=== PATIENT | male | born 2000 ===

== ENCOUNTER 2020-11-27 09:05 | Emergency (ER) | payer BC ==
[2020-11-27] MEDS ORDERED: Orphenadrine 60 MG/2 ML Inj IM ONE (09:58)
[2020-11-27] MEDS ORDERED: Ketorolac 60 MG/2 ML SDV IM ONE (09:58)
--- NOTE | 2020-11-27 10:07 | EDM.PDOC ---
ED HPI GENERAL MEDICAL PROBLEM - General Chief Complaint: Back Pain or Injury Stated Complaint: back pain Time Seen by Provider: 11/27/20 09:45 Source of Information: Reports: Patient History Limitations: Reports: No Limitations - History of Present Illness INITIAL COMMENTS - FREE TEXT/NARRATIVE: Jose Rafael is a 20 year old who presents with low back pain and a headache. States awoke yesterday with his back hurting. No recall of any injury, straining. Has headache as well. Mild sinus congestion but no facial pain. No ear pain, sore throat, or cough. Denies feeling fatigue or body aches. No exposure to covid that he is aware of. Has not taken any meds for headache or back pain or used ice/heat. Onset: Gradual Duration: Hour(s):, Constant Location: Reports: Back Quality: Reports: Ache Severity: Mild Improves with: Reports: Rest Worsens with: Reports: Movement Associated Symptoms: Reports: Headaches. Denies: Confusion, Chest Pain, Cough, Fever/Chills, Loss of Appetite, Malaise, Nausea/Vomiting, Shortness of Breath, Weakness Back Pain Score (Numeric/FACES): 4 - Related Data Allergies Allergy/AdvReac Type Severity Reaction Status Date / Time No Known Allergies Allergy Verified 11/27/20 09:10 Home Meds: Home Meds Bictegrav/Emtricit/Tenofov Ala [Biktarvy 50-200-25 mg Tablet] 1 tab PO DAILY 11/27/20 [History] Cyclobenzaprine [Flexeril] 5 mg PO Q8H PRN #21 tab 11/27/20 [Rx] Meloxicam 15 mg PO DAILY #7 tablet 11/27/20 [Rx] Past Medical History Immunologic History: Reports: HIV - Infectious Disease History Infectious Disease History: Reports: HIV-Human Immunodeficiency Virus Social & Family History - Family History Family Medical History: No Pertinent Family History - Tobacco Use Tobacco Use Status *Q: Never Tobacco User Second Hand Smoke Exposure: No - Caffeine Use Caffeine Use: Reports: Coffee, Soda - Recreational Drug Use Recreational Drug Use: No ED ROS GENERAL - Review of Systems Review Of Systems: See Below Constitutional: Denies: Fever, Chills, Malaise, Weakness, Fatigue, Decreased Appetite HEENT: Reports: Rhinitis. Denies: Ear Pain, Sinus Problem, Throat Pain Respiratory: Denies: Shortness of Breath, Cough Cardiovascular: Denies: Chest Pain, Lightheadedness Endocrine: Denies: Fatigue GI/Abdominal: Denies: Abdominal Pain, Constipation, Diarrhea, Nausea, Vomiting : Reports: No Symptoms Musculoskeletal: Reports: Back Pain Skin: Reports: No Symptoms Neurological: Reports: Headache ED EXAM,LOWER BACK PAIN/INJURY - Physical Exam Exam: See Below Exam Limited By: No Limitations General Appearance: Alert, WD/WN, No Apparent Distress Eye Exam: Bilateral Eye: EOMI, PERRL Ears: Normal External Exam, Normal TMs Nose: Normal Inspection, Normal Mucosa, Clear Rhinorrhea Throat/Mouth: Normal Inspection, Normal Oropharynx Head: Normocephalic Neck: Normal Inspection, Supple, Non-Tender Respiratory/Chest: No Respiratory Distress, Lungs Clear, Normal Breath Sounds Cardiovascular: Regular Rate, Rhythm GI/Abdominal: Normal Bowel Sounds, Soft, Non-Tender Back Exam: Normal Inspection, Decreased Range of Motion, Muscle Spasm, Paraspinal Tenderness Extremities: Normal Inspection, No Pedal Edema Neurological: Alert, CN II-XII Intact, Normal Gait Skin Exam: Warm, Dry Course - Vital Signs Last Recorded V/S: Last Vital Signs Temp 100.3 F 11/27/20 09:12 Pulse 81 11/27/20 09:12 Resp 16 11/27/20 09:12 BP 146/92 H 11/27/20 09:12 Pulse Ox 98 11/27/20 09:12 - Orders/Labs/Meds Meds: Medications Discontinued Medications Generic Name Dose Route Start Last Admin Trade Name Freq PRN Reason Stop Dose Admin Ketorolac Tromethamine 60 mg 11/27/20 09:58 Ketorolac 60 Mg/2 Ml Sdv IM 11/27/20 09:59 ONETIME ONE Orphenadrine Citrate 60 mg 11/27/20 09:58 Orphenadrine 60 Mg/2 Ml Inj IM 11/27/20 09:59 ONETIME ONE Departure - Departure Time of Disposition: 10:05 Disposition: Home, Self-Care 01 Condition: Good Clinical Impression: Low back pain - Discharge Information *PRESCRIPTION DRUG MONITORING PROGRAM REVIEWED*: No *COPY OF PRESCRIPTION DRUG MONITORING REPORT IN PATIENT PRAMOD: No Prescriptions: Cyclobenzaprine [Flexeril] 5 mg PO Q8H PRN #21 tab PRN Reason: Muscle Spasm - Painful Meloxicam 15 mg PO DAILY #7 tablet Instructions: Acute Back Pain, Adult Referrals: PCP,None [Primary Care Provider] - Additional Instructions: 1. Rest 2. Ice or heat to low back for symptom relief 3. Meloxicam 15 daily for 7 days 4. Flexeril 10 mg every 8 hours as needed for muscle spasms 5. If pain persists, may need to consider seeing physical therapy 6. Call clinic with any concerns Sepsis Event Note (ED) - Evaluation Sepsis Screening Result: No Definite Risk - Focused Exam Vital Signs: Vital Signs Temp Pulse Resp BP Pulse Ox 11/27/20 09:12 100.3 F 81 16 146/92 H 98
== END 2020-11-27 10:10 | disposition home or self-care (01) ==
LOC: CC.ED 09:05
DX: M54.5 Low back pain (principal); B20 Human immunodeficiency virus [HIV] disease; Z79.899 Other long term (current) drug therapy
CPT/HCPCS: 96372; 99283; J1885; J2360